=== PATIENT | female | born 1960 | race Two or more races ===

== ENCOUNTER 2019-07-16 06:24 | Day surgery (SDC) | payer OTHER ==
[~2019-07-16 06:24] MED LIST: ALTACE5 MG PO; ASPIR 8181 MG PO; CHILDREN'S ASPI81 MG PO; CLONAZEPAM0.5 MG PO; MICROZIDE12.5 MG PO; PRAVASTATIN SOD40 MG PO; RAMIPRIL5 MG PO; RESTORIL30 M1 PO; TOPROL XL25 M1 PO; TORSEMIDE10 MG PO; VITAMIN D3400 UNI2 PO; WELLBUTRIN SR150 MG PO; WELLBUTRIN XL150 M1 PO
== END 2019-07-16 16:20 | disposition home or self-care (01) ==
LOC: CIR.AMB 06:24
DX: N81.6 Rectocele (principal); K62.0 Anal polyp